=== PATIENT | female | born 1945 | race Caucasian/White ===

== ENCOUNTER 2024-05-01 11:37 | Observation (INO) | payer MEDICARE, SELFPAY ==
[2024-05-01] VITALS (17 sets, daily range): BP systolic 112–172; BP diastolic 58–105; PULSE 76–101; RESP 16–35; TEMP 36.6–37.3; O2SAT 93–100; BMI 24.7; BMI 25.2
--- NOTE | 2024-05-01 12:01 | DI.RAD.S_ITS ---
PROCEDURE: XR HUMERUS RT 2V INDICATIONS: fall TECHNIQUE: 2 views of the humerus were acquired. COMPARISON: None. FINDINGS: Bones: Comminuted and displaced fracture involving the proximal right humeral shaft . Fracture plane may extend to the humeral head, however glenohumeral joint remains intact. Soft tissues: No suspicious soft tissue calcifications. IMPRESSION: Comminuted and displaced proximal right humeral shaft fracture with possible extension to the humeral head. Glenohumeral joint is intact. Approved by: Norah Ness M.D.,Ph.D. on 05/01/2024 at 13:01
--- NOTE | 2024-05-01 12:01 | DI.RAD.S_ITS ---
PROCEDURE: XR SHOULDER RT MIN 2V INDICATIONS: fall TECHNIQUE: 2 views of the shoulder were acquired. COMPARISON: Humerus radiograph 05/01/2024. FINDINGS: Bones: Comminuted and moderately displaced fracture of the proximal humeral diaphysis extending to the humeral head. Soft tissues: No suspicious soft tissue calcifications. IMPRESSION: Comminuted moderately displaced fracture of the proximal humeral diaphysis with extension to the humeral head. Approved by: Norah Ness M.D.,Ph.D. on 05/01/2024 at 13:03
--- NOTE | 2024-05-01 15:00 | DI.CT.S_ITS ---
PROCEDURE: CT STROKE INDICATIONS: confusion weakness TECHNIQUE: Noncontrast 4.5 mm thick angled axial sections acquired from the foramen magnum to the vertex, with coronal reformats. For radiation dose reduction, the following was used: automated exposure control, adjustment of mA and/or kV according to patient size. COMPARISON: None. FINDINGS: Image quality: Diagnostic. CSF spaces: Basal cisterns are patent. No extra-axial fluid collections. The ventricles are symmetric in size and shape. Brain: No acute intracranial hemorrhage or mass effect. There is cerebral volume loss for age, with resultant ventricular and sulcal prominence. There are periventricular and deep white matter chronic small vessel ischemic changes. There is intracranial internal carotid artery atherosclerosis. Skull and face: Calvarium and visualized facial bones appear intact, without suspicious lesions. Sinuses: Visualized sinuses and mastoids are clear. IMPRESSION: 1. No acute intracranial pathology. 2. Moderate chronic microvascular ischemic changes and generalized parenchymal volume loss. Findings were discussed with the referring provider by telephone on 05/01/2024 at 3:24 PM. This study fulfills neurological imaging criteria for inclusion or exclusion of acute stroke therapies based on available published neurological guidelines. Approved by: Ajay Sunshine M.D. on 05/01/2024 at 15:24
--- NOTE | 2024-05-01 15:00 | DI.CT.S_ITS ---
PROCEDURE: CT ANGIO HEAD AND NECK INDICATIONS: confusion weakness TECHNIQUE: After the administration of intravenous contrast, 1 mm thick sections acquired from the aortic arch through the [place]. 3-dimensional olkwejt-opcurmacv-quvobajave (MIP) and/or volume rendering reformats were acquired of the central intracranial vasculature and neck separately. For radiation dose reduction, the following was used: automated exposure control, adjustment of mA and/or kV according to patient size. COMPARISON: [facility], CR, XR SHOULDER RT MIN 2V, 05/01/2024, 12:04. [facility], CT, CT STROKE, 05/01/2024, 15:14. FINDINGS: Image quality: Diagnostic. BRAIN: CSF spaces: Ventricles are normal in size and shape. Basal cisterns are patent. No extra-axial fluid collections. Brain: No significant abnormality of the brain can be seen. Skull and face: Calvarium and facial bones appear intact, without suspicious lesions. Orbits appear normal. Sinuses: Sinuses and mastoids are clear. HEAD CT ANGIOGRAPHY: Anterior circulation: Intracranial internal carotid arteries are normal in size and flow. The flow within the paired anterior cerebral arteries is normal and symmetric. The flow within the middle cerebral arteries is normal and symmetric. The anterior communicating artery is seen. No aneurysms are seen. Posterior circulation: Visualized portions of the vertebral arteries demonstrate normal caliber, and join to form a normal appearing basilar artery. Flow within the posterior cerebral arteries is normal and symmetric. No aneurysms are seen. NECK CT ANGIOGRAPHY: Carotid system: The great vessels demonstrate a conventional anatomy as they arise from the aortic arch. The origins of the common carotid arteries appear patent. The common carotid arteries demonstrate normal caliber and courses. The bifurcation regions are both widely patent. The internal carotid arteries demonstrate normal calibers and courses. Posterior circulation: The origins of the vertebral arteries both appear widely patent. The more superior extracranial portions of both vertebral arteries also demonstrate normal courses and calibers. They join to form a normal appearing basilar artery. Soft tissues: Soft tissue edema is partially visualized in the right shoulder region related to known right proximal humeral fracture. Bones: No suspicious bony lesions. Visualized cervical spine appears normally aligned. IMPRESSION: 1. No significant intracranial arterial abnormality is seen. 2. No significant abnormality is seen within the arteries of the neck. 3. Soft tissue edema partially visualized in the region of the right shoulder related to known proximal humeral fracture. Any quantitative measurements of stenosis were performed using NASCET criteria. Approved by: Ajay Sunshine M.D. on 05/01/2024 at 15:30
--- NOTE | 2024-05-01 15:21 | EKG_ITS ---
[facility] [address] [place] [address] Test Date: 2024-05-01 Pat Name: Alivia Giron Department: Room: Gender: Female [employer]: RUBIN : 1945 Requested By: Order Number: [id number] Reading MD: Ceasar Barlow Measurements Intervals [place] Rate: 88 P: 18 VA: 142 QRS: -5 QRSD: 90 T: 75 QT: 302 QTc: 365 Interpretive Statements Normal sinus rhythm Left ventricular hypertrophy with repolarization abnormality ( R in aVL ) Electronically Signed On 05-02-2024 16:36:16 PDT by Ceasar Barlow
--- NOTE | 2024-05-01 15:23 | ED.UPPEXIN ---
HPI - Extremity Injury (Upper) General Chief Complaint: Extremity Injury, Upper Stated Complaint: fell/poss dislocated shoulder Time Seen by Provider: 05/01/24 14:55 Source: patient Mode of arrival: Ambulatory History of Present Illness HPI narrative: Patient 79-year-old female presents today with right shoulder pain and fall. She apparently was out walking her niece's dog yesterday when she felt dizzy and off balance she went to rest her hand on a car when she slipped and fell. She certainly has some shoulder pain. But was able to go home. Her pain was pretty well controlled without any significant medication. However she was still having pain today. She went to the walk-in clinic he had been standing in line for a little bit she was filling out paperwork when suddenly she fell again. She had x-rays done in the waiting room she does have a proximal humerus fracture. However now staff reports that she is definitely more confused than she was previously. Code stroke was called. However since she has fallen and had balance issues ongoing for more than 24 hours unlikely to be an acute code stroke. She is able to answer questions and move all of her extremities. She has no numbness or tingling in her right hand. She is not on anticoagulation or antiplatelet medication. Related Data Allergies Allergy/AdvReac Type Severity Reaction Status Date / Time povidone-iodine Allergy Rash Verified 05/01/24 12:01 [From Betadine] Patient History Social History Smoking Status: Former smoker Smoking Status: Former smoker alcohol intake frequency: 3 or more drinks per day Substance Use Type: does not use Exam Initial Vital Signs Initial Vital Signs: Vital Signs Temperature 99.2 F 05/01/24 11:54 Pulse Rate 89 05/01/24 11:54 Respiratory Rate 16 05/01/24 11:54 Blood Pressure 135/65 05/01/24 11:54 Pulse Oximetry 97 05/01/24 11:54 Oxygen Delivery Method Room Air 05/01/24 11:54 GENERAL: Alert pleasant mildly confused 79-year-old female and in no acute distress. HEENT: Head atraumatic,EOMI, pupils reactive, face symmetric, moist mucous membranes CARDIOVASCULAR: Regular rate and rhythm without murmurs, rubs or gallops. RESPIRATORY: Breath sounds equal bilaterally, no wheezes rales or rhonchi. ABDOMEN: Soft, nontender. Normoactive bowel sounds all 4 quadrants. No guarding or rebound. EXTREMITIES: Normal range of motion, no clubbing or edema. Neurovascularly intact Right upper extremity contusion noted sensation deltoid intact able to flex and extend wrist no pain at elbow distal radial pulse intact NEUROLOGICAL: Alert and oriented x3.Normal gait and speech. Cranial nerves II through XII grossly intact. Good gelwoj-yy-goyd, good aieh-ks-jtmh, strength equal bilaterally, no dysarthria or aphasia, sensation in tact to soft touch bilaterally, no visual changes, no facial droop SKIN: Warm, dry, no laceration, no petechiae, no rashes or lesions. Scores NIH Stroke Scale Level of Conciousness: Alert, keenly responsive Ask month/age: Answers one question correctly, intubated follow commands Open/close eyes, close hand: Performs both tasks correctly Best gaze horizontal: Normal Visual espana: No visual loss Facial palsy: Normal symetrical movement Left arm drift: No drift for full 10 sec Right arm drift: No drift for full 10 sec Left leg drift: No drift for full 5 sec Right leg drift: No drift for full 5 sec Limb ataxia: Absent Sensory on face/arms/legs: Normal, no sensory loss Best language: No aphasia, normal Dysarthria: Normal Extinction or inattention: No abnormality Total NIH Stroke scale score: 1 Course Orders Ordered: ED Orders 05/01/24 12:01 XR humerus RT 2V Stat XR shoulder RT min 2V Stat 05/01/24 15:[address] angio head and neck Stat Urinalysis and Microscopic Stat Urine Drug Screen, Rapid Stat EKG-12 Lead Stat 05/01/24 15:23 Complete Blood Count AUTO DIFF Stat Comprehensive Metabolic Panel Stat Ethanol (ETOH) Stat PTT Partial Thromboplastin Pradeep Stat Procalcitonin Stat Prothrombin Time INR Stat Troponin & CK Cardiac Panel Stat 05/01/24 15:45 Lactate (Lactic Acid) Stat 05/01/24 15:54 Respiratory Panel (Film Array) Stat 05/01/24 16:12 Blood Culture Stat 05/01/24 18:02 Chest [XR chest 1V] Stat Acetaminophen (Acetaminophen 325 Mg Tablet) 650 mg PO Q6H PRN PRN Reason: Fever/Mild Pain (1-3) Enoxaparin Sodium (Enoxaparin 40 Mg/0.4 Ml Syringe) 40 mg SUBCUT DAILY TEA Sodium Chloride (Normal Saline 0.9%) 1,000 mls @ 1,000 mls/hr IV BOLUS ONE Stop: 05/01/24 19:02 Last Infusion: 05/01/24 18:55 Dose: 0 mls/hr Documented By: Admin: 05/01/24 18:39 Dose: 1,000 mls/hr Documented By: RB Naloxone HCl (Naloxone 0.4 Mg/Ml Vial) 0.2 mg IV Q2MIN PRN PRN Reason: Opiate Reversal Ondansetron HCl (Ondansetron 4 Mg/2 Ml Inj) 4 mg IV Q8HR PRN PRN Reason: Nausea And Vomiting Discontinued Medications Aspirin (Aspirin Ec 325 Mg Tablet) 325 mg PO NOW ONE Stop: 05/01/24 18:03 Last Admin: 05/01/24 18:38 Dose: 325 mg Documented By: RB Ceftriaxone Sodium 1,000 mg/ (Sodium Chloride) 100 mls @ 200 mls/hr IV NOW ONE Stop: 05/01/24 16:54 Last Infusion: 05/01/24 18:02 Dose: Infused Documented By: Admin: 05/01/24 17:29 Dose: 200 mls/hr Documented By: RB Sodium Chloride (Normal Saline 0.9%) 1,000 mls @ 1,000 mls/hr IV BOLUS ONE Stop: 05/01/24 18:01 Last Infusion: 05/01/24 18:35 Dose: Infused Documented By: Admin: 05/01/24 17:30 Dose: 1,000 mls/hr Documented By: RB Vital Signs Vital signs: Vital Signs - 8 hr 05/01/24 11:54 05/01/24 14:51 05/01/24 14:51 Temperature 99.2 F Pulse Rate 89 95 H Respiratory Rate 16 Blood Pressure 135/65 112/76 Pulse Oximetry 97 96 Oxygen Delivery Method Room Air 05/01/24 15:00 05/01/24 15:06 05/01/24 15:17 Temperature Pulse Rate 101 H Respiratory Rate 16 Blood Pressure 135/105 H Pulse Oximetry 98 Oxygen Delivery Method 05/01/24 15:17 05/01/24 15:30 05/01/24 15:48 Temperature Pulse Rate 90 84 85 Respiratory Rate 22 20 Blood Pressure Pulse Oximetry 97 98 96 Oxygen Delivery Method 05/01/24 15:48 05/01/24 16:00 05/01/24 16:00 Temperature Pulse Rate 87 Respiratory Rate 20 Blood Pressure 151/68 H 166/94 H Pulse Oximetry 97 Oxygen Delivery Method 05/01/24 16:30 05/01/24 17:00 05/01/24 17:01 Temperature Pulse Rate 93 H 89 87 Respiratory Rate 35 H 20 22 Blood Pressure Pulse Oximetry 96 98 99 Oxygen Delivery Method 05/01/24 17:01 05/01/24 17:30 05/01/24 17:30 Temperature Pulse Rate 92 H Respiratory Rate 17 Blood Pressure 169/75 H 154/71 H Pulse Oximetry 93 Oxygen Delivery Method Room Air 05/01/24 18:00 05/01/24 18:01 05/01/24 18:01 Temperature Pulse Rate 90 91 H Respiratory Rate 24 21 Blood Pressure 159/79 H Pulse Oximetry 100 100 Oxygen Delivery Method 05/01/24 18:30 05/01/24 18:30 Temperature Pulse Rate 87 Respiratory Rate 18 Blood Pressure 172/65 H Pulse Oximetry 100 Oxygen Delivery Method MDM - Extremity Injury (Upper) Lab Data 05/01/24 15:23 05/01/24 15:23 Labs: Lab Results 05/01/24 05/01/24 05/01/24 Range/Units 15:23 15:45 15:54 WBC 15.1 H (4.5-11.0) X10^3/uL RBC 4.58 (4.0-5.2) X10^6/uL Hgb 12.8 (12.0-16.0) g/dL Hct 38.0 (36-46) % MCV 83.0 (80-100) fL MCH 28.0 (26-34) PG MCHC 33.7 (30-36) % RDW 15.1 H (11.6-14.8) % Plt Count 196 (150-400) X10^3/uL Neut % (Auto) 81.6 H (50-75) % Lymph % (Auto) 11.8 L (25-40) % [place] % (Auto) 6.4 (3-14) % Eos % (Auto) 0.0 L (2-4) % Baso % (Auto) 0.2 (0-2) % Neut # (Auto) 04485 H (1046-5159) /uL Lymph # (Auto) 1800 (5736-6022) /uL [place] # (Auto) 1000 H (0-900) /uL Eos # (Auto) 0 (0-450) /uL Baso # (Auto) 0 (0-100) /uL PT 11.8 (9.4-12.5) SECONDS INR 1.0 (0.9-1.3) APTT 21 L (25.1-36.5) SECONDS Sodium 138 (137-145) mmol/L Potassium 3.6 (3.4-5.1) mmol/L Chloride 106 (98-107) mmol/L Carbon Dioxide 27 (22-32) mmol/L BUN 18 H (7-17) mg/dL Creatinine 0.60 (0.52-1.04) mg/dL Estimated GFR > 60 (>60) mL/min BUN/Creatinine Ratio 30.0 H (6-22) Glucose 123 H (80-110) mg/dL Lactate 2.9 H (0.7-2.1) mmol/L Calcium 8.4 (8.4-10.2) mg/dL Total Bilirubin 0.9 (0.2-1.3) mg/dL AST 23 (14-36) IU/L ALT 14 (<35) IU/L Alkaline Phosphatase 65 (38-126) U/L Total Creatine Kinase 80 (30-135) U/L Troponin I < 0.012 (0.01-0.034) ng/mL Total Protein 5.8 L (6.3-8.2) g/dL Albumin 3.5 (3.5-5.0) g/dL Globulin 2.3 (1.7-4.1) g/dL Albumin/Globulin Ratio 1.5 (1.0-2.8) Procalcitonin 0.061 (<0.5) ng/mL Ethyl Alcohol < 10 ( - 10) mg/dL Chlamy pneumoniae PCR Not detected (Not Detect) Adenovirus (PCR) Not detected (Not Detect) B.parapertussis DNA PCR Not detected (Not Detecte) Coronavirus OC43 (PCR) Not detected (Not Detect) Coronavirus HKU1 (PCR) Not detected (Not Detect) Coronavirus 229E (PCR) Not detected (Not Detect) SARS-CoV-2 (PCR) Not detected (Not Detecte) Coronavirus NL63 (PCR) Not detected (Not Detect) Human Metapneumovir PCR Not detected (Not Detect) Influenza Type A (PCR) Not detected (Not Detect) Influenza Type B (PCR) Not detected (Not Detect) M. pneumoniae (PCR) Not detected (Not Detect) Parainfluenza 1 (PCR) Not detected (Not Detect) Parainfluenza 2 (PCR) Not detected (Not Detect) Parainfluenza 3 (PCR) Not detected (Not Detect) Parainfluenza 4 (PCR) Not detected (Not Detect) RSV (PCR) Not detected (Not Detect) Entero/Rhino (PCR) Not detected (Not Detect) 05/01/24 Range/Units 17:58 WBC (4.5-11.0) X10^3/uL RBC (4.0-5.2) X10^6/uL Hgb (12.0-16.0) g/dL Hct (36-46) % MCV (80-100) fL MCH (26-34) PG MCHC (30-36) % RDW (11.6-14.8) % Plt Count (150-400) X10^3/uL Neut % (Auto) (50-75) % Lymph % (Auto) (25-40) % [place] % (Auto) (3-14) % Eos % (Auto) (2-4) % Baso % (Auto) (0-2) % Neut # (Auto) (4817-2287) /uL Lymph # (Auto) (9937-8587) /uL [place] # (Auto) (0-900) /uL Eos # (Auto) (0-450) /uL Baso # (Auto) (0-100) /uL PT (9.4-12.5) SECONDS INR (0.9-1.3) APTT (25.1-36.5) SECONDS Sodium (137-145) mmol/L Potassium (3.4-5.1) mmol/L Chloride (98-107) mmol/L Carbon Dioxide (22-32) mmol/L BUN (7-17) mg/dL Creatinine (0.52-1.04) mg/dL Estimated GFR (>60) mL/min BUN/Creatinine Ratio (6-22) Glucose (80-110) mg/dL Lactate 3.7 H (0.7-2.1) mmol/L Calcium (8.4-10.2) mg/dL Total Bilirubin (0.2-1.3) mg/dL AST (14-36) IU/L ALT (<35) IU/L Alkaline Phosphatase (38-126) U/L Total Creatine Kinase (30-135) U/L Troponin I (0.01-0.034) ng/mL Total Protein (6.3-8.2) g/dL Albumin (3.5-5.0) g/dL Globulin (1.7-4.1) g/dL Albumin/Globulin Ratio (1.0-2.8) Procalcitonin (<0.5) ng/mL Ethyl Alcohol ( - 10) mg/dL Chlamy pneumoniae PCR (Not Detect) Adenovirus (PCR) (Not Detect) B.parapertussis DNA PCR (Not Detecte) Coronavirus OC43 (PCR) (Not Detect) Coronavirus HKU1 (PCR) (Not Detect) Coronavirus 229E (PCR) (Not Detect) SARS-CoV-2 (PCR) (Not Detecte) Coronavirus NL63 (PCR) (Not Detect) Human Metapneumovir PCR (Not Detect) Influenza Type A (PCR) (Not Detect) Influenza Type B (PCR) (Not Detect) M. pneumoniae (PCR) (Not Detect) Parainfluenza 1 (PCR) (Not Detect) Parainfluenza 2 (PCR) (Not Detect) Parainfluenza 3 (PCR) (Not Detect) Parainfluenza 4 (PCR) (Not Detect) RSV (PCR) (Not Detect) Entero/Rhino (PCR) (Not Detect) Point of Care Testing Glucose POC [address] scan - head: Radiologist's Impression: PROCEDURE: XR WRIST LT MIN 3V INDICATIONS: Fall with pain upon palpation and range of motion of area. TECHNIQUE: 4 views of the wrist were acquired. COMPARISON: None. FINDINGS: Bones: Status post fixation of distal radius using plate and screw construct. No evidence of hardware complication. Severe 1st CMC and moderate triscaphe joint degeneration. No acute fracture identified. Soft tissues: No suspicious soft tissue calcifications. IMPRESSION: No acute fracture identified. 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 Status post distal radial fixation without evidence of hardware complication. Approved by: Norah Ness M.D.,Ph.D. on 05/01/2024 at 10:39 CTA - brain/neck: Radiologist's Impression: PROCEDURE: CT ANGIO HEAD AND NECK INDICATIONS: confusion weakness TECHNIQUE: After the administration of intravenous contrast, 1 mm thick sections acquired from the aortic arch through the [place]. 3-dimensional qoynhwf-ddjnwrnnv-dijjwcblce (MIP) and/or volume rendering reformats were acquired of the central intracranial vasculature and neck separately. For radiation dose reduction, the following was used: automated exposure control, adjustment of mA and/or kV according to patient size. COMPARISON: [facility], CR, XR SHOULDER RT MIN 2V, 05/01/2024, 12:04. [facility], CT, CT STROKE, 05/01/2024, 15:14. FINDINGS: Image quality: Diagnostic. BRAIN: CSF spaces: Ventricles are normal in size and shape. Basal cisterns are patent. No extra-axial fluid collections. Brain: No significant abnormality of the brain can be seen. Skull and face: Calvarium and facial bones appear intact, without suspicious lesions. Orbits appear normal. Sinuses: Sinuses and mastoids are clear. HEAD CT ANGIOGRAPHY: Anterior circulation: Intracranial internal carotid arteries are normal in size and flow. The flow within the paired anterior cerebral arteries is normal and symmetric. The flow within the middle cerebral arteries is normal and symmetric. The anterior communicating artery is seen. No aneurysms are seen. Posterior circulation: Visualized portions of the vertebral arteries demonstrate normal caliber, and join to form a normal appearing basilar artery. Flow within the posterior cerebral arteries is normal and symmetric. No aneurysms are seen. NECK CT ANGIOGRAPHY: Carotid system: The great vessels demonstrate a conventional anatomy as they arise from the aortic arch. The origins of the common carotid arteries appear patent. The common carotid arteries demonstrate normal caliber and courses. The bifurcation regions are both widely patent. The internal carotid arteries demonstrate normal calibers and courses. Posterior circulation: The origins of the vertebral arteries both appear widely patent. The more superior extracranial portions of both vertebral arteries also demonstrate normal courses and calibers. They join to form a normal appearing basilar artery. Soft tissues: Soft tissue edema is partially visualized in the right shoulder region related to known right proximal humeral fracture. Bones: No suspicious bony lesions. Visualized cervical spine appears normally aligned. IMPRESSION: 1. No significant intracranial arterial abnormality is seen. 2. No significant abnormality is seen within the arteries of the neck. 3. Soft tissue edema partially visualized in the region of the right shoulder related to known proximal humeral fracture. Any quantitative measurements of stenosis were performed using NASCET criteria. Approved by: Ajay Sunshine M.D. on 05/01/2024 at 15:30 Chest x-ray: Radiologist's Impression: PROCEDURE: XR CHEST 1V INDICATIONS: sepsis TECHNIQUE: One view of the chest was acquired. COMPARISON: None. FINDINGS: Surgical changes and devices: None. Lungs and pleura: Lungs are clear. No pleural effusions or pneumothorax. Mediastinum: Mediastinal contours appear normal. Heart size is normal. Bones and chest wall: No suspicious bony lesions. Overlying soft tissues appear unremarkable. IMPRESSION: No acute cardiopulmonary abnormality is seen. Approved by: Norah Ness M.D.,Ph.D. on 05/01/2024 at 17:32 Extremity x-ray #1: Radiologist's Impression: PROCEDURE: XR SHOULDER RT MIN 2V INDICATIONS: fall TECHNIQUE: 2 views of the shoulder were acquired. COMPARISON: Humerus radiograph 05/01/2024. FINDINGS: Bones: Comminuted and moderately displaced fracture of the proximal humeral diaphysis extending to the humeral head. Soft tissues: No suspicious soft tissue calcifications. IMPRESSION: Comminuted moderately displaced fracture of the proximal humeral diaphysis with extension to the humeral head. Approved by: Norah Ness M.D.,Ph.D. on 05/01/2024 at 13:03 Extremity x-ray #2: Radiologist's Impression: PROCEDURE: XR HUMERUS RT 2V INDICATIONS: fall TECHNIQUE: 2 views of the humerus were acquired. COMPARISON: None. FINDINGS: Bones: Comminuted and displaced fracture involving the proximal right humeral shaft . Fracture plane may extend to the humeral head, however glenohumeral joint remains intact. Soft tissues: No suspicious soft tissue calcifications. IMPRESSION: Comminuted and displaced proximal right humeral shaft fracture with possible extension to the humeral head. Glenohumeral joint is intact. Approved by: Norah Ness M.D.,Ph.D. on 05/01/2024 at 13:01 ECG Data Interpretation: Normal sinus rhythm rate 88 IA interval 142 QRS [address] changes MDM Narrative Medical decision making narrative: MDM CC: Fall Complicating co-morbidities: [ ] Corroborating data: Sister Medical records reviewed: None Differential considered: TIA, CVA, transient global amnesia, concussion, sepsis Exam documented above, pertinent findings include: Patient does have contusion and deformity to her right upper extremity but no neurological deficit. She is can fused but no slurring of speech or facial droop NIH stroke scale of 1 for some confusion on time. She does have repetitive questioning repetitive conversations on exam. Lab Test results independently reviewed as above. Pertinent findings: WBC 15.1, lactate 2.9 with repeat 3.7, procalcitonin 0.61 INR 1.0, PTT 21, sodium 138, potassium 3.6, chloride 106, carbon dioxide 27, BUN 18, creatinine 0.6, bilirubin 0.9, AST 14 alk-phos 65 troponin negative Respiratory panel negative Urinalysis, patient has not been able to give a urine it in the ED Independently reviewed EKG as above no ischemia Imaging studies independently reviewed: Noncontrast head CT shows no intracranial hemorrhage, CT angio no large vessel occlusion she is found to have significant proximal humerous fracture Consultations: 1525 Dr. Felton orthopedics updated on patient's x-ray, at this time he recommends conservative treatment only recommends a cuff and collar splint and sling along with pain control. Is able to see her in the clinic or consult as needed. 1800 Dr. Tubbs in ED to see and evaluate patient and accepts patient Treatments: IV fluids, Rocephin, aspirin Re-evaluations: Patient continues to have repetitive conversations he was to be coming more confused as time goes on Discussion: Patient initially presented as a mechanical fall and right shoulder pain however it became clear that she has fallen twice she is more confused. Code stroke was called however her last known well was yesterday. She has not a candidate for TNK. She is mildly confused but no large vessel occlusion is found no real focal deficits. She may have metabolic encephalopathy that secondary to infection versus transient global amnesia. Based on leukocytosis and rising lactate I suspect infection. Encouraged patient to give a urine sample however she is unable to do so offered catheterization however she declined which is appropriate. Blood cultures are pending. She is treated with Rocephin. She does have significant fracture of her left arm she is appropriately splinted and orthopedics have been consulted She is hemodynamically stable with out hypotension or tachycardia she remains afebrile. Discharge Plan Departure Patient Disposition: Admitted As Inpatient Clinical Impression: Acute metabolic encephalopathy, CVA (cerebral vascular accident) Admit Date/Time: 05/01/24 18:31 Admit Provider: Dev Tubbs V
--- NOTE | 2024-05-01 15:25 | PC.NURSE ---
Pt has broken RIGHT arm, and therefore is unable to lift this extremity during assessment of NIH. She has normal and equal medical imaging technologist strength in both hands.
--- NOTE | 2024-05-01 15:26 | PC.NURSE ---
1450: This RN rooms patient from waiting room. Upon standing from wheelchair patient loses her balance and steps forward to prevent herself from falling. She is guided to the gurney and sits. Pt is alert but unaware of what happened yesterday, unaware of month, unaware of president and unaware of why she fell yesterday and today. She seems confused. BEFAST negative other than positive for balance. RN Cathy brought to bedside, who triaged this patient, and appreciates differences in mentation too. Provider Shailesh made aware and code stroke called at 1500. Unknown as to LKW, sister at bedside reports significant changes in her mentation over the past 2 hours while waiting.
[2024-05-01 15:39] LABS: Prothrombin Time 11.8 SECONDS (9.4-12.5)
[2024-05-01 15:41] LABS: PTT Partial Thromboplastin Tim 21 SECONDS (25.1-36.5)
[2024-05-01 15:49] LABS: Add Manual Diff / Slide Review NO; Basophils Absolute Auto 0 /uL (0-100); Basophils Percent Auto 0.2 % (0-2); Eosinophils Absolute Auto 0 /uL (0-450); Hemoglobin 12.8 g/dL (12.0-16.0); Lymphocytes Absolute Auto 1800 /uL (1100-4500); Lymphocytes Percent Auto 11.8 % (25-40); Mean Corpuscular HGB Conc 33.7 % (30-36); Monocytes Absolute Auto 1000 /uL (0-900); Monocytes Percent Auto 6.4 % (3-14); Neutrophils Absolute Auto 12300 /uL (1500-7000); Neutrophils Percent Auto 81.6 % (50-75); Platelet Count 196 X10^3/uL (150-400); Red Blood Cell Count 4.58 X10^6/uL (4.0-5.2); Red Cell Distribution Width 15.1 % (11.6-14.8); White Blood Cell Count 15.1 X10^3/uL (4.5-11.0)
[2024-05-01 15:54] LABS: Alanine Aminotransferase 14 IU/L (<35); Albumin 3.5 g/dL (3.5-5.0); Albumin Globulin Ratio 1.5 (1.0-2.8); Alkaline Phosphatase 65 U/L (38-126); Aspartate Aminotransferase 23 IU/L (14-36); Bilirubin Total 0.9 mg/dL (0.2-1.3); Blood Urea Nitrogen 18 mg/dL (7-17); Calcium 8.4 mg/dL (8.4-10.2); Carbon Dioxide 27 mmol/L (22-32); Chloride 106 mmol/L (98-107); Creatine Kinase 80 U/L (30-135); Estimated Glomerular Filt Rate > 60 mL/min (>60); Ethanol (ETOH) < 10 mg/dL; Globulin 2.3 g/dL (1.7-4.1); Glucose 123 mg/dL (80-110); HEMOLYSIS 26 (0-50); Potassium 3.6 mmol/L (3.4-5.1); Sodium 138 mmol/L (137-145); Total Protein 5.8 g/dL (6.3-8.2)
[2024-05-01 16:05] LABS: Troponin I < 0.012 ng/mL (0.01-0.034)
[2024-05-01 16:12] LABS: Lactate (Lactic Acid) 2.9 mmol/L (0.7-2.1)
[2024-05-01 16:34] LABS: Procalcitonin 0.061 ng/mL (<0.5)
[2024-05-01 16:59] LABS: Adenovirus Not Detected (Not Detect); B. parapertussis Not Detected (Not Detecte); Bordetella pertussis Not Detected (Not Detect); Chlamydophila pneumoniae Not Detected (Not Detect); Coronavirus 229E Not Detected (Not Detect); Coronavirus HKU1 Not Detected (Not Detect); Coronavirus NL 63 Not Detected (Not Detect); Coronavirus OC43 Not Detected (Not Detect); Human Metapneumovirus Not Detected (Not Detect); Human Rhinovirus/Enterovirus Not Detected (Not Detect); Influenza A Not Detected (Not Detect); Influenza B Not Detected (Not Detect); Mycoplasma pneumoniae Not Detected (Not Detect); Parainfluenza Virus 1 Not Detected (Not Detect); Parainfluenza Virus 2 Not Detected (Not Detect); Parainfluenza Virus 3 Not Detected (Not Detect); Parainfluenza Virus 4 Not Detected (Not Detect); Respiratory Syncytial Virus Not Detected (Not Detect); SARS- CoV-2 Not Detected (Not Detecte)
--- NOTE | 2024-05-01 17:20 | PC.NURSE ---
Addendum entered by Vivienne Man R.N. 05/01/24 17:25: Charge nurse Tony goes and speaks to patient. Education given and patient is agreeable to IV fluids and IV antibiotics. RN Tony to medicate per JAN. Original Note: Pt is declining IV fluids and IV abx at this time. Pt also states she will not have a straight cath. Provider made aware.
[2024-05-01] MEDS: cefTRIAXone 1,000 MG in SODIUM CHLORIDE 0.9% 100 ML 200 MG IV (17:29)
[2024-05-01] MEDS: SODIUM CHLORIDE 0.9% 1,000 ML 1000 ML IV ×2 (17:30→18:39)
[2024-05-01 17:38] LABS: Reflexed Lactate in 2 Hours Y
--- NOTE | 2024-05-01 18:02 | DI.RAD.S_ITS ---
PROCEDURE: XR CHEST 1V INDICATIONS: sepsis TECHNIQUE: One view of the chest was acquired. COMPARISON: None. FINDINGS: Surgical changes and devices: None. Lungs and pleura: Lungs are clear. No pleural effusions or pneumothorax. Mediastinum: Mediastinal contours appear normal. Heart size is normal. Bones and chest wall: No suspicious bony lesions. Overlying soft tissues appear unremarkable. IMPRESSION: No acute cardiopulmonary abnormality is seen. Approved by: Norah Ness M.D.,Ph.D. on 05/01/2024 at 17:32
[2024-05-01 18:16] LABS: Lactate 2HR (Lactic Acid Rflx) 3.7 mmol/L (0.7-2.1)
[2024-05-01] MEDS: ASPIRIN EC 325 MG TABLET PO (18:38)
--- NOTE | 2024-05-01 18:39 | PM.HP.1 ---
History of Present Illness History of Present Illness Date Patient Seen: 05/01/24 Time Patient Seen: 18:15 Date of Onset of Symptoms: 04/30/24 Chief complaint: fell/poss dislocated shoulder Narrative: 79-year-old woman visiting from [place] was walking her nieces dog yesterday when she felt dizzy and, when reaching to rest her hand on a car, fell forward and landed on the ground. She had pain in her shoulder though was able to go home. She presented to the walk-in clinic today but while there fell again and was directed to the emergency department. X-ray showed a proximal humeral fracture. The patient appeared confused and a code stroke was called. Imaging study showed no evidence of acute stroke. She was able to answer questions and move all of her extremities. There was no numbness or tingling of the right hand or apparent weakness. Given ongoing confusion she is admitted for further management and evaluation. She is interviewed and provides history though appears confused about recent events. She is seen with her sister at bedside and provides most of the history herself, as her sister was not present until the Emergency Department presentation. [facility] Social History Smoking Status: Former smoker Meds Home Medications and Allergies Allergies Allergy/AdvReac Type Severity Reaction Status Date / Time povidone-iodine Allergy Rash Verified 05/01/24 12:01 [From Betadine] Review of Systems Review of Systems ROS: Yes All systems reviewed with the patient and are negative except as otherwise documented Exam Vital Signs (past 8 hours): - 05/01/24 11:54 05/01/24 14:51 05/01/24 14:51 Temperature 99.2 F Pulse Rate 89 95 H Respiratory Rate 16 Blood Pressure 135/65 112/76 Pulse Oximetry 97 96 Oxygen Delivery Method Room Air 05/01/24 15:00 05/01/24 15:06 05/01/24 15:17 Temperature Pulse Rate 101 H Respiratory Rate 16 Blood Pressure 135/105 H Pulse Oximetry 98 Oxygen Delivery Method 05/01/24 15:17 05/01/24 15:30 05/01/24 15:48 Temperature Pulse Rate 90 84 85 Respiratory Rate 22 20 Blood Pressure Pulse Oximetry 97 98 96 Oxygen Delivery Method 05/01/24 15:48 05/01/24 16:00 05/01/24 16:00 Temperature Pulse Rate 87 Respiratory Rate 20 Blood Pressure 151/68 H 166/94 H Pulse Oximetry 97 Oxygen Delivery Method 05/01/24 16:30 05/01/24 17:00 05/01/24 17:01 Temperature Pulse Rate 93 H 89 87 Respiratory Rate 35 H 20 22 Blood Pressure Pulse Oximetry 96 98 99 Oxygen Delivery Method 05/01/24 17:01 05/01/24 17:30 05/01/24 17:30 Temperature Pulse Rate 92 H Respiratory Rate 17 Blood Pressure 169/75 H 154/71 H Pulse Oximetry 93 Oxygen Delivery Method Room Air Oxygen Delivery Method Room Air Narrative Exam Narrative: GENERAL: This is a well-nourished, well-developed patient, in no apparent distress. HEAD: Superficial nasal and chin abrasions. EYES: Pupils equal round and reactive. Extraocular motions intact. No scleral icterus. No injection or drainage. ENT: Mucous membranes pink and moist. Upper dentures in place without damage, lower dentition intact. NECK: Trachea midline. No JVD, bruits or lymphadenopathy. Supple, nontender, no meningeal signs. CARDIOVASCULAR: Regular rate and rhythm without murmurs, gallops, or rubs. RESPIRATORY: Clear to auscultation. GASTROINTESTINAL: Abdomen soft, non-tender, nondistended. EXTREMITIES: No clubbing, cyanosis, or edema. MUSCULOSKELETAL: Right shoulder in sling, pain with movement, no swelling, warmth, erythema or effusion. Left shoulder 3cm ecchymosis. Left knee superficial abrasion. Right wrist and all other joints in left arm, both legs with FROM without pain. BACK: Nontender without deformity or crepitance. No flank tenderness. NEUROLOGIC: Alert, oriented, speech fluent, full upper and lower motor strength, no focal deficits evident. DERMATOLOGIC: No rashes or skin lesions. Objective ECG Impression: Normal sinus rhythm at 80 beats per minute, left ventricular hypertrophy with repolarization changes Imaging Head CT noncontrast: Radiologist's impression: 1. No acute intracranial pathology. 2. Moderate chronic microvascular ischemic changes and generalized parenchymal volume loss. Head/neck CTA: Radiologist's impression: 1. No significant intracranial arterial abnormality is seen. 2. No significant abnormality is seen within the arteries of the neck. 3. Soft tissue edema partially visualized in the region of the right shoulder related to known proximal humeral fracture. Shoulder xray: Radiologist's impression: Comminuted moderately displaced fracture of the proximal humeral diaphysis with extension to the humeral head. Humerus xray: Radiologist's impression: Comminuted and displaced proximal right humeral shaft fracture with possible extension to the humeral head. Glenohumeral joint is intact. Chest x-ray: Radiologist's impression: No acute cardiopulmonary abnormality is seen. Labs 05/01/24 15:23 05/01/24 15:23 Labs: Laboratory Results - last 24 hr 05/01/24 05/01/24 05/01/24 15:23 15:45 15:54 WBC 15.1 H RBC 4.58 Hgb 12.8 Hct 38.0 MCV 83.0 MCH 28.0 MCHC 33.7 RDW 15.1 H Plt Count 196 Neut % (Auto) 81.6 H Lymph % (Auto) 11.8 L [place] % (Auto) 6.4 Eos % (Auto) 0.0 L Baso % (Auto) 0.2 Neut # (Auto) 02549 H Lymph # (Auto) 1800 [place] # (Auto) 1000 H Eos # (Auto) 0 Baso # (Auto) 0 PT 11.8 INR 1.0 APTT 21 L Sodium 138 Potassium 3.6 Chloride 106 Carbon Dioxide 27 BUN 18 H Creatinine 0.60 Estimated GFR > 60 BUN/Creatinine Ratio 30.0 H Glucose 123 H Lactate 2.9 H Calcium 8.4 Total Bilirubin 0.9 AST 23 ALT 14 Alkaline Phosphatase 65 Total Creatine Kinase 80 Troponin I < 0.012 Total Protein 5.8 L Albumin 3.5 Globulin 2.3 Albumin/Globulin Ratio 1.5 Procalcitonin 0.061 Ethyl Alcohol < 10 Chlamy pneumoniae PCR Not detected Adenovirus (PCR) Not detected B.parapertussis DNA PCR Not detected Coronavirus OC43 (PCR) Not detected Coronavirus HKU1 (PCR) Not detected Coronavirus 229E (PCR) Not detected SARS-CoV-2 (PCR) Not detected Coronavirus NL63 (PCR) Not detected Human Metapneumovir PCR Not detected Influenza Type A (PCR) Not detected Influenza Type B (PCR) Not detected M. pneumoniae (PCR) Not detected Parainfluenza 1 (PCR) Not detected Parainfluenza 2 (PCR) Not detected Parainfluenza 3 (PCR) Not detected Parainfluenza 4 (PCR) Not detected RSV (PCR) Not detected Entero/Rhino (PCR) Not detected 05/01/24 17:58 WBC RBC Hgb Hct MCV MCH MCHC RDW Plt Count Neut % (Auto) Lymph % (Auto) [place] % (Auto) Eos % (Auto) Baso % (Auto) Neut # (Auto) Lymph # (Auto) [place] # (Auto) Eos # (Auto) Baso # (Auto) PT INR APTT Sodium Potassium Chloride Carbon Dioxide BUN Creatinine Estimated GFR BUN/Creatinine Ratio Glucose Lactate 3.7 H Calcium Total Bilirubin AST ALT Alkaline Phosphatase Total Creatine Kinase Troponin I Total Protein Albumin Globulin Albumin/Globulin Ratio Procalcitonin Ethyl Alcohol Chlamy pneumoniae PCR Adenovirus (PCR) B.parapertussis DNA PCR Coronavirus OC43 (PCR) Coronavirus HKU1 (PCR) Coronavirus 229E (PCR) SARS-CoV-2 (PCR) Coronavirus NL63 (PCR) Human Metapneumovir PCR Influenza Type A (PCR) Influenza Type B (PCR) M. pneumoniae (PCR) Parainfluenza 1 (PCR) Parainfluenza 2 (PCR) Parainfluenza 3 (PCR) Parainfluenza 4 (PCR) RSV (PCR) Entero/Rhino (PCR) Assessment & Plan Assessment & Plan narrative: 1. Altered mental status. Etiology unclear. No evidence of acute stroke by by exam or imaging studies. Metabolic workup is negative with a normal white blood count. Urinalysis has been requested and is pending. She is admitted for overnight observation and further evaluation as indicated. 2. Right proximal humerus fracture. Per emergency department this was reviewed with Orthopedics and outpatient follow-up was advised. Continue sling. Treat pain with Tylenol. 3. DVT prophylaxis. Treat with low-dose subcutaneous Lovenox. 4. Code status: Full code. The patient clearly states this medical wish during our admission interview today. Scores ABCD2 Age >= 60 years: yes Initial BP. Either SBP >= 140 or DBP >= 90.: no Clinical features of the TIA: other symptoms Duration of symptoms: >= 60 minutes History of diabetes: no ABCD2 Score: 3 Quality VTE Deep Vein Thrombosis/Pulmonary Embolism Present on Admission: No MIPS - Admit I confirm the patient?s Advance Care Plan is present, Code status is documented, Surrogate decision maker is in patient?s record [If Yes, STOP here]: Yes MIPS - Meds 'Current medications' to include all prescriptions, [id number] products, herbals, cannabis/cannabidiol products, and vitamin/mineral/dietary (nutritional) supplements. I have utilized all available resources to obtain, update, or review the patient?s current medications. [If Yes, STOP here]: Yes PROFEE Charge Codes Initial inpatient/observation care: 44412
--- NOTE | 2024-05-01 20:38 | PC.NURSE ---
Per patient she hasn't taken any of her medications in the last 2 months and doesn't remembered what she was taken then.
[2024-05-01 21:30] LABS: Lactate (Lactic Acid) 2.9 mmol/L (0.7-2.1)
[2024-05-01] MEDS: SODIUM CHLORIDE 0.9% 1,000 ML 75 ML IV (22:32)
[2024-05-01 22:47] LABS: Reflexed Lactate in 2 Hours Y
--- NOTE | 2024-05-01 22:51 | PC.NURSE ---
Addendum entered by Carola Tran R.N. 05/02/24 05:58: Urine sample sent to lab. Patient reporting right arm pain from humeral fx, requesting Aspirin as it is the only thing that works. Patient does not want to try Tylenol. Notified MD Tobin, x1 Aspirin dose ordered. Addendum entered by Carola Tran R.N. 05/02/24 03:54: Exhibiting unsteady gait when ambulating longer distances, required assistance with gait belt when ambulating to the bathroom. Attempted to obtain urine sample, urine missed hat container, will attempt again later. Original Note: production shift supervisor: Patient is alert and oriented to self, place, month/year, a bit forgetful about situation. NIH: 2 (unable to accurately assess right arm drift d/t right arm injury/sling). Patient denies SOB, CP, dizziness, or weakness. On tele showing NSR. IVF infusing as ordered. Ambulatory w/ SBA. Fall precautions in place, plan of care ongoing.
[2024-05-01 23:30] LABS: Lactate 2HR (Lactic Acid Rflx) 1.9 mmol/L (0.7-2.1)
[2024-05-02 03:00] VITALS: BP 140/58; PULSE 70; RESP 20; TEMP 37.1; O2SAT 99
[2024-05-02] MEDS: ASPIRIN EC 325 MG TABLET PO ×2 (06:04→10:58)
[2024-05-02 06:32] LABS: Ur Creatinine Normal (Normal); Ur Specific Gravity Normal (Normal); Urine Amphetamines Negative (Negative); Urine Barbiturates Negative (Negative); Urine Benzodiazepines Negative (Negative); Urine Cocaine Negative (Negative); Urine MDMA Negative (Negative); Urine Methadone Negative (Negative); Urine Methamphetamines Negative (Negative); Urine Opiates Negative (Negative); Urine Oxycodone Negative (Negative); Urine Phencyclidine Negative (Negative); Urine THC Negative (Negative); Urine Tricyclic Antidepressant Negative (Negative); Urine pH Normal (Normal)
[2024-05-02 06:39] LABS: Add Manual Diff / Slide Review NO; Basophils Absolute Auto 0 /uL (0-100); Basophils Percent Auto 0.3 % (0-2); Eosinophils Absolute Auto 100 /uL (0-450); Eosinophils Percent Auto 0.6 % (2-4); Hematocrit 27.2 % (36-46); Hemoglobin 9.3 g/dL (12.0-16.0); Lymphocytes Absolute Auto 2900 /uL (1100-4500); Lymphocytes Percent Auto 32.2 % (25-40); Mean Corpuscular Hemoglobin 28.2 PG (26-34); Mean Corpuscular Volume 82.9 fL (80-100); Monocytes Absolute Auto 800 /uL (0-900); Monocytes Percent Auto 8.4 % (3-14); Neutrophils Absolute Auto 5200 /uL (1500-7000); Neutrophils Percent Auto 58.5 % (50-75); Platelet Count 136 X10^3/uL (150-400); Red Blood Cell Count 3.29 X10^6/uL (4.0-5.2); Red Cell Distribution Width 14.7 % (11.6-14.8); White Blood Cell Count 8.9 X10^3/uL (4.5-11.0)
[2024-05-02 06:55] LABS: Appearance Urine UA CLEAR; Bilirubin Urine UA NEGATIVE (NEGATIVE); Color Urine UA YELLOW; Glucose Urine UA NEGATIVE (Negative); Ketones Urine UA NEGATIVE (NEGATIVE); Leukocyte Esterase Urine UA NEGATIVE (NEGATIVE); Nitrite Urine UA NEGATIVE (Negative); Occult Blood Urine UA NEGATIVE (Negative); Protein Urine UA NEGATIVE (Negative); Urobilinogen Urine UA 0.2 E.U./dL (0.2)
[2024-05-02 07:01] LABS: Blood Urea Nitrogen 11 mg/dL (7-17); Carbon Dioxide 26 mmol/L (22-32); Chloride 110 mmol/L (98-107); Estimated Glomerular Filt Rate > 60 mL/min (>60); Glucose 101 mg/dL (80-110); HEMOLYSIS < 15 (0-50); Potassium 3.4 mmol/L (3.4-5.1); Sodium 139 mmol/L (137-145)
[2024-05-02 07:16] LABS: Urine Volume 10mL (spun)
[2024-05-02 07:17] LABS: Bacteria Urine None Seen; Culture Indicated Urine Cult Not Indicated; RBC Urine 0-1/HPF (0-5/HPF); Squamous Epithelial Cell Urine 1-5 /HPF (0-5/HPF); WBC Urine 0-1/HPF (0-5/HPF)
[2024-05-02 08:00] VITALS: BP 151/82; PULSE 81; RESP 17; O2SAT 99
--- NOTE | 2024-05-02 10:48 | PC.NURSE ---
Addendum entered by Clarisa Nicolas R.N. 05/02/24 18:54: Patient discharged to home, copy of patients signature paperwork copied and given to patient. She discharged to her sisters house. Original Note: Assess- Patient is alert and oriented x3 but can be forgetful. She was up to the [facility] and voided around 300cc of yellow urine. She has an arm sling in place to r.dominga from previous break. Ate breakfast and refused her lovenox injection. Sister is visiting. Will offer patient some aspirin for discomfort.
[2024-05-02] MEDS: SODIUM CHLORIDE 0.9% 1,000 ML 75 ML IV (10:58)
--- NOTE | 2024-05-02 11:42 | OT.IP.EVAL ---
Occupational Therapy Inpatient Evaluation/Re-Eval M1 PT/OT-IP Prior Functional Status Start: 05/02/24 12:41 Freq: NEEDED Status: Active Protocol: Document 05/02/24 12:41 CGR (Rec: 05/02/24 13:13 CGR [id number]) Medical Review Prior Functional Status Medical History Reviewed Yes Communication Pt is an effective verbal communicator. Pt demonstrates some cognitive deficits. Mobility and Gait Pt was IND in all functional mobility. Activities of Daily Living and IADL's Pt was IND in all ADLs at baseline. 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 Social History Household Members none Living Arrangements Apartment/Condo Number of Stairs To Enter/Railing? Pt's condo is one level but she has a flight of stairs with B rail to enter her home in [place], [place]. Home Environment Standard Height Toilet,Tub/ Shower Employment Status Retired Additional Social History Comment Pt is an active intermodal owner operator truck driver. M2 OT-IP Current Condition Start: 05/02/24 12:41 Freq: Status: Active Protocol: Document 05/02/24 12:41 CGR (Rec: 05/02/24 13:13 CGR [id number]) Occupational Therapy Current Condition Current Condition Evaluation Date 05/02/24 Treatment Diagnosis Fall with R proximal humeral fx, AMS, Sling Diagnosis Onset Date 05/01/24 Post Operative Precautions Other Precautions R humeral fx NWB. M3 OT- IP Subjective and Pain Start: 05/02/24 12:41 Freq: Status: Active Protocol: Document 05/02/24 12:41 CGR (Rec: 05/02/24 13:13 CGR [id number]) OT- Subjective Occupational Therapy Visit Type Type Initial Evaluation Visit Start Time 10:59 Visit Stop Time 11:42 OT Pain Assessment Pain When Pain Assessed After Treatment Pain Present Pain Present Pain Reported Location Right Shoulder Intensity 1 Scale Used Numeric (0 - 10) Management Techniques Distraction,Modification of Treatment,Re-positioning, Timing of Activity with Medications M4 OT- IP ADL's Start: 05/02/24 12:41 Freq: Status: Active Protocol: Document 05/02/24 12:41 CGR (Rec: 05/02/24 13:13 CGR [id number]) OT [id number] Comments OT Self-Feeding Comments Not meal time OT ADL-Grooming General Evaluation Grooming Ability Independent Comments OT Grooming Comments standing at sink to wash hands OT ADL-Oral Care Comments Oral Care Comments not performed OT ADL-Dressing General Eval Upper Body Dressing Ability Minimal Assistance Lower Body Dressing Ability Independent Areas Needing Assistance Socks,Orthosis/Prosthesis Comments OT Dressing Comments pt needed min a for donning sling. OT ADL-Toileting General Evaluation Toileting Ability Independent Comments OT Toileting Comments pt urinated seated on toielt. OT ADL-Bathing Comments OT Bathing Comments not performed M5 OT- IP IADL's Start: 05/02/24 12:41 Freq: Status: Active Protocol: Document 05/02/24 12:41 CGR (Rec: 05/02/24 13:13 CGR [id number]) OT-Instrumental Activities of Daily Living Deficits IADL Deficits Identified No Deficits Home Safety Awareness Awareness of Need for Assistance at Home Good Awareness Home Safety Comments Pt with some cognitive deficits noted. Medication Management Medication Management Comments Concerns regarding pts ability to perform safely Money Management Money Management Comments Concerns regarding pts ability to perform safely Meal Preparation Meal Preparation Comments Concerns regarding pts ability to perform safely Teacher Of The Visually Impaired Teacher Of The Visually Impaired Comments Concerns regarding pts ability to perform safely Driving Driving Comments Concerns regarding pts ability to perform safely M6 OT- IP Functional Cognition Start: 05/02/24 12:41 Freq: Status: Active Protocol: Document 05/02/24 12:41 CGR (Rec: 05/02/24 13:13 CGR [id number]) Cognitive Factors Limiting Selfcare Function Cognitive Ability Level of Alertness Alert Patient Orientation Name,Age,Birthday,Month,Date, Day of Week,Place,Situation Attention Span Ability Capable of Focused Attention, Capable of Sustained Attention Ability to Follow Commands Able to Follow One Step Commands with Increased Time, Able to Follow One Step Commands with Repetition Cognitive Comments Cognitive Assessment Comments Pt would benefit from SLUMS. Pt stated that it was 2015 after thinking about it for some time. OT- Vision and Hearing OT- Hearing Assessment OT- Hearing Assessment WFL OT- Vision Assessment Vision History Cataracts Visual Acuity WFL Visual Attentiveness WFL Occular Pursuits WFL Vision Assessment Comments Pt states she recently had cateract sx and hasn't gotten an updated pair of glasses. M7 OT- IP Mobility and Balance Start: 05/02/24 12:41 Freq: Status: Active Protocol: Document 05/02/24 12:41 CGR (Rec: 05/02/24 13:13 CGR [id number]) OT- Bed Mobility Assessment Supine to Sit Supine to Sit Assist Independent Scooting Scooting to Edge of Bed Independent OT-Transfer Assessment Sit to and From Stand Sit to and from Stand Independent Transfers Transfer Ability Independent Technique Transfer Destination Bed,Chair Transfer Technique Stand Step Pivot Devices Transfer Assistive Devices None OT- Gait Assessment Gait Gait Assistance Required: Independent Assistive Devices Assistive Device None Comments Gait Ability Comments mobility around the room and bathroom OT- Balance Assessment Sitting Balance and Reactions Static Sitting Balance Ability Normal Dynamic Sitting Balance Ability Normal M8 OT- IP Objective Assessments Start: 05/02/24 12:41 Freq: Status: Active Protocol: Document 05/02/24 12:41 CGR (Rec: 05/02/24 13:13 CGR [id number]) OT Gross Range of Motion Upper Extremity Range of Motion Assessment Right Impaired OT Strength Upper Extremity Strength Assessment Right Impaired OT- Coordination Assessment Upper Extremity Finger to Nose Test Right UE Impaired Finger Tapping Test Right UE Impaired OT-Muscle Tone Assessment Muscle Tone WNL Yes OT Sensation Assessment Edema Edema Absent M9 OT- IP Assessment and Plan Start: 05/02/24 12:41 Freq: Status: Active Protocol: Document 05/02/24 12:41 CGR (Rec: 05/02/24 13:13 CGR [id number]) OT Summary Assessment and Plan Potential Rehabilitation Potential Excellent Analytic Complexity at Evaluation Low Summary OT Impairments Pain,Range of Motion,Strength, Coordination,Functional Cognition Progress Towards Goals Progressing Toward Goals Assessment Summary Pt presents as a moderate complexity evaluation s/p admit for fall while walking the dog. Pt describes feeling off, reaching for a car to steady herself and then not remembering falling or being on the ground. Educated pt on safety with passing out and identifying the triggers for her body to know when to get into a chair or down on the ground. Pt participated in ADLs and moved around the room with min a for donning sling. Pt will continue to benefit from OT services. Recommend d/ c home with home health services. Goals Dressing Goal Independent Bathing Goal Independent Shower Transfer Goal Independent OT-Other Goals don and doff brace with IND. Days to Meet Goals 2 Frequency of Treatment Frequency Of Treatment Once a Day Treatment Plan OT Treatment Plan ADL Training,Functional Cognition Training,Patient/ Family Education,Discharge Planning Other Treatment Recommendations and Next SLUMS, practice sling Treatment Focus management. Discharge Recommendations OT Discharge Recommendations Home with 24/7 Assist Available Transportation Needs at Discharge Private Vehicle
[2024-05-02 12:00] VITALS: BP 143/84; PULSE 75; RESP 15; O2SAT 97
--- NOTE | 2024-05-02 13:59 | P.DS_ITS ---
History of Present Illness History of Present Illness Date Patient Seen: 05/02/24 Time Patient Seen: 13:59 Date of Onset of Symptoms: 04/30/24 Chief complaint: fell/poss dislocated shoulder Narrative: 79-year-old woman visiting from [place] was walking her nieces dog yesterday when she felt dizzy and, when reaching to rest her hand on a car, fell forward and landed on the ground. She had pain in her shoulder though was able to go home. She presented to the walk-in clinic today but while there fell again and was directed to the emergency department. X-ray showed a proximal humeral fracture. The patient appeared confused and a code stroke was called. Imaging study showed no evidence of acute stroke. She was able to answer questions and move all of her extremities. There was no numbness or tingling of the right hand or apparent weakness. Given ongoing confusion she is admitted for further management and evaluation. She is interviewed and provides history though appears confused about recent events. She is seen with her sister at bedside and provides most of the history herself, as her sister was not present until the Emergency Department presentation. Discharge Providers Provider Date of admission: 05/01/24 21:56 Discharge Date: 05/02/24 Primary care physician: Doctor Jose Guadalupe MD Consults: 05/01/24 18:38 Consult to Occupational Therapy Evaluate & Treat Comment: Physician Instructions: Evaluate and treat Consult to Physical Therapy Evaluate & Treat Comment: Physician Instructions: Evaluate and Treat Discharge provider: Ceasar Barlow DO Summary Hospital Course Discharge Diagnosis: 1. Acute probable metabolic or toxic encephalopathy. 2. Right proximal humerus fracture. Hospital Course: 79 F with no significant known PMH (but no PCP) who was admitted with altered mental status after a fall where she suffered a right proximal humerus fracture. She was placed in a sling. There was no obvious infectious or obvious metabolic causes for her acute encephalopathy. She denied substance use and did not arrive by EMS, she only took aspirin for pain in the emergency room. Shortly after admission, she improved to her baseline mentation. She was alert and oriented. She did well with therapies and was recommended for discharge home. She was provided a sling and will follow up as an outpatient with orthopedic surgery. There was no concern for stroke after initial evaluation and initial imaging was unremarkable including head CT and a CT angiogram of her head and neck. Time Spent with Patient Time spent: Less than 30 minutes Exam Vital Signs (past 8 hours): - 05/02/24 08:00 05/02/24 12:00 Pulse Rate 81 75 Respiratory Rate 17 15 Blood Pressure 151/82 H 143/84 H Pulse Oximetry 99 97 Oxygen Flow Rate 0 0 Oxygen Delivery Method Room Air Oxygen Flow Rate 0 Narrative Exam Narrative: GENERAL: This is a well-nourished, well-developed patient, in no apparent distress. HEAD: Superficial nasal and chin abrasions. CARDIOVASCULAR: Regular rate and rhythm without murmurs, gallops, or rubs. RESPIRATORY: Clear to auscultation. EXTREMITIES: No clubbing, cyanosis, or edema. MUSCULOSKELETAL: Right shoulder in sling, no swelling, warmth, erythema or effusion. NEUROLOGIC: Alert, oriented, speech fluent, full upper and lower motor strength, no focal deficits evident. DERMATOLOGIC: No rashes or skin lesions. Objective Labs 05/02/24 05:35 05/02/24 05:35 Labs: Laboratory Results - last 24 hr 05/01/24 05/01/24 05/01/24 15:23 15:45 15:54 WBC 15.1 H RBC 4.58 Hgb 12.8 Hct 38.0 MCV 83.0 MCH 28.0 MCHC 33.7 RDW 15.1 H Plt Count 196 Neut % (Auto) 81.6 H Lymph % (Auto) 11.8 L Pershing % (Auto) 6.4 Eos % (Auto) 0.0 L Baso % (Auto) 0.2 Neut # (Auto) 52514 H Lymph # (Auto) 1800 Pershing # (Auto) 1000 H Eos # (Auto) 0 Baso # (Auto) 0 PT 11.8 INR 1.0 APTT 21 L Sodium 138 Potassium 3.6 Chloride 106 Carbon Dioxide 27 BUN 18 H Creatinine 0.60 Estimated GFR > 60 BUN/Creatinine Ratio 30.0 H Glucose 123 H Lactate 2.9 H Calcium 8.4 Total Bilirubin 0.9 AST 23 ALT 14 Alkaline Phosphatase 65 Total Creatine Kinase 80 Troponin I < 0.012 Total Protein 5.8 L Albumin 3.5 Globulin 2.3 Albumin/Globulin Ratio 1.5 Procalcitonin 0.061 Urine Color Urine Appearance Urine pH Ur Specific [place] Urine Protein Urine Glucose (UA) Urine Ketones Urine Occult Blood Urine Nitrate Urine Bilirubin Urine Urobilinogen Ur Leukocyte Esterase Urine RBC Urine WBC Ur Squamous Epith Cells Urine Bacteria Ur Culture Indicated? Vol Urine Centrifuged U Opiates 300ng/mL cut Ur Oxycodone Screen Urine Methadone Screen Ur Barbiturates Screen U Tricyclic Antidepress Ur Phencyclidine Scrn Ur Amphetamines Screen U Methamphetamines Scrn Ur MDMA Scrn (Ecstasy) U Benzodiazepines Scrn Urine Cocaine Screen U Marijuana (THC) Screen Urine Specific [place] Ethyl Alcohol < 10 Ur Creatinine Chlamy pneumoniae PCR Not detected Adenovirus (PCR) Not detected B.parapertussis DNA PCR Not detected Coronavirus OC43 (PCR) Not detected Coronavirus HKU1 (PCR) Not detected Coronavirus 229E (PCR) Not detected SARS-CoV-2 (PCR) Not detected Coronavirus NL63 (PCR) Not detected Human Metapneumovir PCR Not detected Influenza Type A (PCR) Not detected Influenza Type B (PCR) Not detected M. pneumoniae (PCR) Not detected Parainfluenza 1 (PCR) Not detected Parainfluenza 2 (PCR) Not detected Parainfluenza 3 (PCR) Not detected Parainfluenza 4 (PCR) Not detected RSV (PCR) Not detected Entero/Rhino (PCR) Not detected 05/01/24 05/01/24 05/01/24 17:58 20:55 23:05 WBC RBC Hgb Hct MCV MCH MCHC RDW Plt Count Neut % (Auto) Lymph % (Auto) Pershing % (Auto) Eos % (Auto) Baso % (Auto) Neut # (Auto) Lymph # (Auto) Pershing # (Auto) Eos # (Auto) Baso # (Auto) PT INR APTT Sodium Potassium Chloride Carbon Dioxide BUN Creatinine Estimated GFR BUN/Creatinine Ratio Glucose Lactate 3.7 H 2.9 H 1.9 Calcium Total Bilirubin AST ALT Alkaline Phosphatase Total Creatine Kinase Troponin I Total Protein Albumin Globulin Albumin/Globulin Ratio Procalcitonin Urine Color Urine Appearance Urine pH Ur Specific [place] Urine Protein Urine Glucose (UA) Urine Ketones Urine Occult Blood Urine Nitrate Urine Bilirubin Urine Urobilinogen Ur Leukocyte Esterase Urine RBC Urine WBC Ur Squamous Epith Cells Urine Bacteria Ur Culture Indicated? Vol Urine Centrifuged U Opiates 300ng/mL cut Ur Oxycodone Screen Urine Methadone Screen Ur Barbiturates Screen U Tricyclic Antidepress Ur Phencyclidine Scrn Ur Amphetamines Screen U Methamphetamines Scrn Ur MDMA Scrn (Ecstasy) U Benzodiazepines Scrn Urine Cocaine Screen U Marijuana (THC) Screen Urine Specific [place] Ethyl Alcohol Ur Creatinine Chlamy pneumoniae PCR Adenovirus (PCR) B.parapertussis DNA PCR Coronavirus OC43 (PCR) Coronavirus HKU1 (PCR) Coronavirus 229E (PCR) SARS-CoV-2 (PCR) Coronavirus NL63 (PCR) Human Metapneumovir PCR Influenza Type A (PCR) Influenza Type B (PCR) M. pneumoniae (PCR) Parainfluenza 1 (PCR) Parainfluenza 2 (PCR) Parainfluenza 3 (PCR) Parainfluenza 4 (PCR) RSV (PCR) Entero/Rhino (PCR) 05/02/24 05/02/24 05/02/24 05:35 05:53 05:53 WBC 8.9 RBC 3.29 L Hgb 9.3 L Hct 27.2 L MCV 82.9 MCH 28.2 MCHC 34.0 RDW 14.7 Plt Count 136 L Neut % (Auto) 58.5 D Lymph % (Auto) 32.2 D Pershing % (Auto) 8.4 Eos % (Auto) 0.6 L Baso % (Auto) 0.3 Neut # (Auto) 5200 Lymph # (Auto) 2900 Pershing # (Auto) 800 Eos # (Auto) 100 Baso # (Auto) 0 PT INR APTT Sodium 139 Potassium 3.4 Chloride 110 H Carbon Dioxide 26 BUN 11 Creatinine 0.61 Estimated GFR > 60 BUN/Creatinine Ratio 18.0 Glucose 101 Lactate Calcium 8.0 L Total Bilirubin AST ALT Alkaline Phosphatase Total Creatine Kinase Troponin I Total Protein Albumin Globulin Albumin/Globulin Ratio Procalcitonin Urine Color Yellow Urine Appearance Clear Urine pH 6.0 Normal Ur Specific [place] 1.010 Urine Protein Negative Urine Glucose (UA) Negative Urine Ketones Negative Urine Occult Blood Negative Urine Nitrate Negative Urine Bilirubin Negative Urine Urobilinogen 0.2 Ur Leukocyte Esterase Negative Urine RBC 0-1/hpf Urine WBC 0-1/hpf Ur Squamous Epith Cells 1-5 /hpf Urine Bacteria None seen Ur Culture Indicated? Cult not indicated Vol Urine Centrifuged 10ml (spun) U Opiates 300ng/mL cut Negative Ur Oxycodone Screen Negative Urine Methadone Screen Negative Ur Barbiturates Screen Negative U Tricyclic Antidepress Negative Ur Phencyclidine Scrn Negative Ur Amphetamines Screen Negative U Methamphetamines Scrn Negative Ur MDMA Scrn (Ecstasy) Negative U Benzodiazepines Scrn Negative Urine Cocaine Screen Negative U Marijuana (THC) Screen Negative Urine Specific [place] Normal Ethyl Alcohol Ur Creatinine Normal Chlamy pneumoniae PCR Adenovirus (PCR) B.parapertussis DNA PCR Coronavirus OC43 (PCR) Coronavirus HKU1 (PCR) Coronavirus 229E (PCR) SARS-CoV-2 (PCR) Coronavirus NL63 (PCR) Human Metapneumovir PCR Influenza Type A (PCR) Influenza Type B (PCR) M. pneumoniae (PCR) Parainfluenza 1 (PCR) Parainfluenza 2 (PCR) Parainfluenza 3 (PCR) Parainfluenza 4 (PCR) RSV (PCR) Entero/Rhino (PCR) PFSH Social History household members: none Smoking Status: Former smoker Discharge Plan Discharge Plan Patient Disposition: Home Provider Discharge Comment: You were admitted to the hospital with confusion, which improved. It is not entirely clear as to the etiology of this but stroke and infection are highly unlikely and improved. Pain medication was sent to your pharmacy. Please call orthopedics clinic for follow up . Discharge orders & Medications Prescriptions: New codeine sulfate 15 mg tablet 15 mg PO Q6H PRN (Reason: pain) 7 Days Qty: 20 0RF Follow up/Referrals: Doctor Shi MD [Primary Care Provider] - José Luis Yates MD [Physician] - (humerus fracture outpatient follow up) Diet/Activity/Treatments Diet: Diet as Tolerated and Regular Activity: As tolerated, no restrictions Visit Report/Discharge Packet Instructions: [place] Stand Alone Forms: Patient Portal/API, Stroke Signs & Symptoms Discharge Data Primary Care Provider: Doctor Jose Guadalupe Attending Provider: Edgar Chakraborty Admit Date/Time: 05/01/24 21:56 Quality VTE Deep Vein Thrombosis/Pulmonary Embolism Present on Admission: No
--- NOTE | 2024-05-02 14:48 | PT.IIE ---
Physical Therapy Inpatient Evaluation/Re-Eval M1 PT/OT-IP Prior Functional Status Start: 05/02/24 12:41 Freq: NEEDED Status: Active Protocol: Document 05/02/24 14:27 MB (Rec: 05/02/24 14:48 MB [id number]) Medical Review Prior Functional Status Medical History Reviewed Yes Communication Pt is an effective verbal communicator. Pt demonstrates some cognitive deficits. Mobility and Gait Pt was IND in all functional mobility. Activities of Daily Living and IADL's Pt was IND in all ADLs at baseline. 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 Social History Household Members none Living Arrangements Apartment/Condo Number of Stairs To Enter/Railing? Pt's condo is one level but she has a flight of stairs with B rail to enter her home in [place], [place]. Home Environment Standard Height Toilet,Tub/ Shower Employment Status Retired Additional Social History Comment Pt is an active armored truck driver. M2 PT-IP Current Condition Start: 05/02/24 14:40 Freq: NEEDED Status: Active Protocol: Document 05/02/24 14:27 MB (Rec: 05/02/24 14:48 MB [id number]) Physical Therapy Current Condition Current Condition Evaluation Date 05/02/24 Treatment Diagnosis GLF d/t dizziness and right humeral fx M3 PT-IP Subjective Start: 05/02/24 14:40 Freq: NEEDED Status: Active Protocol: Document 05/02/24 14:27 MB (Rec: 05/02/24 14:48 MB [id number]) Subjective Physical Therapy Visit Type Type Initial Evaluation Visit Start Time 16:27 Visit Stop Time 16:37 Number of MONITOR TECH Visits 0 Physical Therapy Visit Comments Patient Comments Pt states she cannot remember why she fell. She states the dog was good. She thinks she was dizzy. M4 PT-IP Mobility and Gait Start: 05/02/24 14:40 Freq: NEEDED Status: Active Protocol: Document 05/02/24 14:27 MB (Rec: 05/02/24 14:48 MB [id number]) PT-Bed Mobility Assessment Supine to Sit Supine to Sit Independent Sit to Supine Sit to Supine Independent,Bedrails Scooting Scooting to Edge of Bed Independent PT-Transfer Assessment Sit to and From Stand Sit to and from Stand Independent,Standby Assistance Equipment Transfer Assistive Device None Orthotic/Prosthetic Devices or Brace: No Transfers Transfer Destination Bed Transfer Technique Ambulation Transfer Ability Level of Assist Independent Comments Mobility Comments Orthostatic assessment with BP and HR in LUE: 146/52, 85; standing 137/62, 93; standing 1' 137/67, 94. Pt denies light -headedness Gait Assessment Gait Gait Assistance Required: Independent Distance (Feet) 150 Able to Maintain Weight Bearing Status No During Gait Assistive Devices Assistive Device None Orthotic/Prosthetic Devices or Brace: No Comments Gait Comments Gait is slow and pt wears right sling Stair Climbing Assessment Evaluation Level of Assist On Stairs Standby Assistance Devices Stair Climbing Assistive Devices Left Railing Technique/Endurance Stair Climbing Direction Ascend and Descend Stair Climbing Technique Step Over Step Number of Steps Climbed 3 Query Text: Stair Climbing Set # Repetitions (reps) 1 Comments Stair Climbing Comments Left hand on left rail ascend and left hand on right rail descend and pt must twist to descend d/t left arm only and right arm only on descend at sister's steps PT-Balance Assessment Sitting Balance and Reactions Static Sitting Balance Ability Normal Dynamic Sitting Balance Ability Normal Standing Balance and Reactions Static Standing Balance Ability Good Dynamic Standing Balance Ability Good M5 PT-IP Objective Assessments Start: 05/02/24 14:40 Freq: NEEDED Status: Active Protocol: Document 05/02/24 14:27 MB (Rec: 05/02/24 14:48 MB [id number]) Orientation Orientation/Cognition Level of Alertness Confusional State Orientation Name,Age,Birthday,Month,Date, Year,Day of Week,Place Safety Awareness Decreased Safety Awareness Memory Description Short Term Impaired Gross Range of Motion Upper Extremity ROM Impairments Defer to OT Lower Extremity ROM Assessment Within Functional Limits Strength Lower Extremity Strength Assessment Within Functional Limits M6 PT-IP Treatment Start: 05/02/24 14:40 Freq: NEEDED Status: Active Protocol: Document 05/02/24 14:27 MB (Rec: 05/02/24 14:48 MB [id number]) Physical Therapy Treatment Education Education Provided Safety M7 PT-IP Assessment and Plan Start: 05/02/24 14:40 Freq: NEEDED Status: Active Protocol: Document 05/02/24 14:27 MB (Rec: 05/02/24 14:48 MB [id number]) PT Summary Assessment and Plan Potential Rehabilitation Potential Good Status of Condition at Evaluation Evolving Summary Impairments Balance Progress Towards Goals Safe For Discharge Assessment Summary Pt is a 79 y/o female who has difficulty answering PLOF questions, especially related to recent events, fall and symptoms of dizziness reported in chart. Her systolic BP drops 9 mmHg supine to stand and he denies light-headedness . Cues for safety with use rail for ascend and descend and ed pt in proper fluid hydration at home. Plan is for d/c to sister's in [place]. Pt does have some baseline cognitive challenges, it appears. Frequency of Treatment Frequency Of Treatment Discharge Precautions Shoulder Precautions Sling Weight Bearing Status Allowed Weight Bearing Amount (enter % Assume NWB right UE in sling or #) (%) after fracture Recommendations To Nursing Amount of Assist Needed Standby Assistance Discharge Recommendations PT Discharge Recommendations Home with 01/06 Assist Available Transportation Needs at Discharge Private Vehicle
--- NOTE | 2024-05-02 16:22 | CM.DANOTE ---
Brief DCP Note Pt is a 79yo F here visiting family from out of town here after a GLF resulting in some confusion/concern for stroke. X ray found non operable humeral fracture. Imaging found no evidence for a stroke at this time. PCP none listed Payer Medicare and self pay [employer] reviewed EMR. Per PT/OT, pt was indep and here visiting family. Rec home with assistance. Per chart review, pt medically cleared to dc home. Pt left prior to being seen by this [employer]. P: home today family support and OP f/u, no CM needs. CM team will follow as needed. MALLIKA Álvarez Discharge Planning/Care Management CM Discharge Assessment Start: 05/02/24 16:20 Freq: Status: Active Protocol: Document 05/02/24 16:20 SL (Rec: 05/02/24 16:22 [id number]) Discharge Planning Assessment Assigned Disintegrator Feeder MALLIKA Rene DPOA/Assigned Designee Name brother Nascimento Contact Information [phone] Advance Directives? No History Provided By Patient Prior Living Arrangements Apartment/Condo Household Members none Independent with ADL's Yes Is patient alert and oriented? Yes Barriers to Discharge No Discharge Plan Home Transportation Arrangement family Referrals Initiated None needed Whiteboard Updated in Patient Room with No name and ext. # of Disintegrator Feeder Review Status In Process Please Provide Date Initial DC 05/02/24 Assessment Was Performed Next Review Type Continued Stay Review
== END 2024-05-02 14:50 | disposition home or self-care (01) ==
LOC: ED 17:59 → AC 21:57
PROVIDERS: Internal Medicine; Admitting Provider Internal Medicine; Emergency Provider Emergency Medicine; Referring Provider Emergency Medicine; Visit Provider Internal Medicine
DX: S42.201A Unspecified fracture of upper end of right humerus, initial encounter for closed fracture (principal); W01.0XXA Fall on same level from slipping, tripping and stumbling without subsequent striking against object, initial encounter; Y93.K1 Activity, walking an animal; R41.82 Altered mental status, unspecified; R29.701 NIHSS score 1; Z11.52 Encounter for screening for COVID-19
CPT/HCPCS: 36415; 70450; 70496; 70498; 71045; 73030; 73060; 80048; 80053; 80305; 80320; 81001; 82550; 82962; 83605; 84145; 84484; 85025; 85610; 85730; 87040; 87633; 93005; 96361; 96365; 97161; 97166; 97535; 99285; G0378; J0696; Q9967